=== PATIENT | male | born 1940 | race Caucasian/White ===

== ENCOUNTER 2019-02-06 21:31 | Inpatient (IN) | payer OTHER ==
[~2019-02-06] VITALS: Ht 162.6 cm; Wt 63.5 kg
[2019-02-06 21:43] VITALS: BP_SYST 150
--- NOTE | 2019-02-06 21:48 | NUR ---
Patient triaged and placed in waiting room. VSS and patient appears in no acute distress at this time. Accompanied by SELF, awaiting available bed, and MD notified of need for MSE.
[2019-02-06 22:11] LABS: BASOPHILS # (AUTO) 0.1 K/uL (0.0-0.2); BASOPHILS % (AUTO) 0.9 % (0.0-2.0); EOSINOPHILS # (AUTO) 0.2 K/uL (0.0-0.4); EOSINOPHILS % (AUTO) 2.8 % (0.0-4.0); HEMATOCRIT 44.8 % (36-54); LYMPHOCYTES # (AUTO) 2.5 K/uL (1.0-5.5); LYMPHOCYTES % (AUTO) 35.9 % (20.5-51.5); MEAN CORPUSCULAR HEMOGLOBIN 34 pg (27-31); MEAN CORPUSCULAR HGB CONC 33 % (32-36); MEAN CORPUSCULAR VOLUME 101 fL (79.0-98.0); MONOCYTES # (AUTO) 0.9 K/uL (0.0-1.0); MONOCYTES % (AUTO) 12.5 % (1.7-9.3); NEUTROPHILS # (AUTO) 3.3 K/uL (1.8-7.7); NEUTROPHILS % (AUTO) 47.9 % (40.0-70.0); PLATELET COUNT (AUTO) 224 K/uL (130-430); RED BLOOD CELL COUNT(AUTO) 4.42 MIL/uL (4.2-6.2); RED CELL DISTRIBUTION WIDTH 14.8 % (9.0-15.0); WHITE BLOOD COUNT (AUTO) 6.9 K/uL (4.8-10.8)
[2019-02-06 22:17] LABS: ANION GAP 10 (5-15); CALCIUM 9.5 mg/dL (8.4-11.0); CHLORIDE 107 mmol/L (98-107); CREATININE 0.84 mg/dL (0.55-1.30); GLUCOSE 114 mg/dL (70-99); POTASSIUM 3.6 mmol/L (3.5-5.1); SODIUM SERUM 142 mmol/L (136-145); UREA NITROGEN, BLOOD 23 mg/dL (8-21)
[2019-02-06 22:23] LABS: ALANINE AMINOTRANSFERASE 38 U/L (12-78); ALBUMIN 3.4 g/dL (3.4-4.8); ASPARTATE AMINOTRANSFERASE 24 U/L (10-37)
--- NOTE | 2019-02-06 22:55 | NUR ---
Patient to ER bed 7 to gown for evaluation. Side rails up. Report given to Antony MCDONALD.
--- NOTE | 2019-02-06 23:00 | NUR ---
Pt C/O rectal bleeding since this morning. Pt states he has hx of hemorrhoids and scrubbed his anus vigorously this morning prior to the start of his symptoms. Pt denies any pain, N/V/D, or any other symptoms at this time, will continue to monitor.
--- NOTE | 2019-02-06 23:30 | NUR ---
Rectal exam performed by Dr. Loza with Antony MCDONALD at bedside during procedure. Patient tolerated well.
--- NOTE | 2019-02-07 00:32 | NUR ---
Patient transported to radiology via wheelchair, accompanied by rad staff.
--- NOTE | 2019-02-07 00:47 | NUR ---
Pt returned in stable condition
--- NOTE | 2019-02-07 00:52 | NUR ---
Medication reconciliation completed with information provided by patient.
--- NOTE | 2019-02-07 01:09 | NUR ---
# 18 gauge angiocath placed to LT Forearm. Use of asceptic technique. Opsite placed over site. Blood return noted. Blood for lab drawn from site. Flushed with 10 cc of normal saline. No evidence of infiltration noted. Patient tolerated well.
[2019-02-07 01:26] LABS: HEMATOCRIT 42.3 % (36-54); HEMOGLOBIN 14.2 g/dL (14.0-18.0)
--- NOTE | 2019-02-07 02:00 | NUR ---
Pt is aware of potential admission. Will continue to monitor for any change of condition
--- NOTE | 2019-02-07 03:05 | NUR ---
Patient will be admitted to care of Dr. Willingham. Admitted to med surg unit. Will be held in the ED until bed becomes available. Belongings list completed. Summary report printed. Report will be given at bedside.
[2019-02-07] MEDS: D5/0.45 NS 1,000 ML IV SCH ×2 (04:15→14:52)
--- NOTE | 2019-02-07 04:15 | NUR ---
Pt is sleeping in bed, no acute distress noted at this time
--- NOTE | 2019-02-07 05:26 | NUR ---
Pt is resting in bed, no acute distress noted at this time.
--- NOTE | 2019-02-07 05:55 | NUR ---
Pt able to ambulate to the restroom with steady gait. No reports of lethargy, dizziness or any other symptoms besides rectal bleeding. Will continue to monitor.
--- NOTE | 2019-02-07 06:56 | NUR ---
Pt is resting in bed, no acute distress noted at this time. Will continue to monitor.
--- NOTE | 2019-02-07 07:14 | NUR ---
Report given to Admit Nurse prior to change of shift.
--- NOTE | 2019-02-07 07:15 | NUR ---
Report given to Anahi MCDONALD for continuation of care.
--- NOTE | 2019-02-07 07:18 | NUR ---
Patient awake and alert, sitting up in gurney with at bedside.
--- NOTE | 2019-02-07 07:33 | NUR ---
Patient will be admitted to care of Dr. Willingham. Admitted to Med Surg unit. Will go to room 130A. Belongings list completed. Summary report printed. Report will be given at bedside.
[2019-02-07] MEDS ORDERED: MORPHINE 4 MG/ML INJ. SYRINGE IVP PRN (07:45)
[2019-02-07] MEDS ORDERED: ONDANSETRON HCL 4 MG/2 ML VIAL IVP PRN (07:45)
[2019-02-07] MEDS ORDERED: LORazepam 2 MG/ML VIAL IVP PRN (07:45)
[2019-02-07] MEDS ORDERED: MORPHINE 2 MG/ML INJ. SYRINGE IVP PRN (07:45)
--- NOTE | 2019-02-07 07:45 | NUR ---
ADMISSION NOTE Received patient from ER via [place], Patient admitted with diagnosis of RECTAL BLEED. Patient oriented to hospital routine, call light, toileting and safety-patient verbalized understanding.
[2019-02-07 07:58] VITALS: BP_SYST 153
--- NOTE | 2019-02-07 08:00 | NUR ---
INITIAL ASSESSMENT: PATIENT CAME FROM ER WITH A DIAGNOSIS OF RECTAL BLEED VIA GURNEY IN ROOM 130-A. REPORT GIVEN BY DANA.SEEN PATIENT IN BED. NO ACUTE DISTRESS. BED LOCKED AT LOWEST POSITION.CALL LIGHT WITH IN REACH. INITIAL ASSESSMENT RENDERED. NO PROBLEM.
--- NOTE | 2019-02-07 08:08 | NUR ---
GI ROUNDS: PATIENT SEEN BY DR LARIOS WITH ORDERS SECURE CONSENT FOR COLONOSCOPY,BOWEL PREP THIS EVENING ORDERED.
--- NOTE | 2019-02-07 11:30 | NUR ---
RN ROUNDS: PATIENT STARTED HAVING CLEAR LIQUID DIET,NO RED. WELL TOLERATED.
--- NOTE | 2019-02-07 13:00 | NUR ---
RN ROUNDS: RESTING. NO PROBLEM.
[2019-02-07 13:08] VITALS: BP_SYST 137
--- NOTE | 2019-02-07 15:15 | NUR ---
RN ROUNDS: NO DISTRESS. CONTINUE TO MONITOR.
[2019-02-07] MEDS ORDERED: BISACODYL 5 MG TABLET.DR (DULCOLAX) PO ONE (17:00)
--- NOTE | 2019-02-07 17:00 | NUR ---
DULCOLAX TABLET: DUE PO DULCOLAX GIVEN FOR BOWEL PREPARATION. NO PROBLEM.
[2019-02-07 17:06] VITALS: BP_SYST 148
[2019-02-07] MEDS ORDERED: GOLYTELY / COLYTE SOLUTION 4 LITERS PO ONE (18:00)
--- NOTE | 2019-02-07 18:00 | NUR ---
NIKKI: INSTRUCTIONS GIVEN TO PATIENT TO FINISHED IT WITH IN 3 HOURS ORDERED. NOTHING BY MOUTH AFTER 12 MIDNIGHT INSTRUCTED.
--- NOTE | 2019-02-07 18:45 | NUR ---
CLOSING NOTES: GOLYTELY ON GOING AND PATIENT TAKING IT WELL. CALL LIGHT WITH REACH. BED LOCKED AT LOWEST POSITION. NO DISTRESS.
[2019-02-07 20:10] VITALS: BP_SYST 135
--- NOTE | 2019-02-07 20:25 | NUR ---
PATIENT AWAKE ALERT AMBULATES HAILY NPO @ MIDNIGHT FOR COLONOSCOPY PATIENT ALERT ALSO AWARE .
--- NOTE | 2019-02-07 20:26 | NUR ---
GOLYTELY PO CONTINUED BRP STOOL SEMI CLEAR CONTINUE TO MONITOR .
[2019-02-07 23:48] VITALS: BP_SYST 129
[2019-02-08 00:37] VITALS: BP_SYST 119
--- NOTE | 2019-02-08 02:20 | NUR ---
GOLYTELY PO COMPLETED PATIENT TOLERATE STOOL STILL SEMI CLEAR CONTINUE TO MONITOR .
--- NOTE | 2019-02-08 02:21 | NUR ---
PATIENT NPO ALERT & AWARE FFOR AM PROCEDURE .
--- NOTE | 2019-02-08 02:42 | NUR ---
OUT OF BED TO REST ROOM STOOL IS CLEAR THIS HOUR AMBULATES WITH STEADY GAIT , TOLERATE .
--- NOTE | 2019-02-08 04:49 | NUR ---
GOLYTELY 4000 ML PO COMPLETED CLEAR STOOL NOTED , PATIENT REMAINS NPO FOR AM PROCEDURE .
--- NOTE | 2019-02-08 04:51 | NUR ---
CUSTOMER CONTACT SPECIALIST IS MADE AWARE OF GI REQUEST FOR SERVICE FOR 0700 / .
[2019-02-08] MEDS: D5/0.45 NS 1,000 ML IV SCH ×3 (05:51→19:15)
[2019-02-08 05:53] LABS: INR 1.1 (0.80-1.20); PROTHROMBIN TIME 10.8 SECS (9.5-12.5)
[2019-02-08 05:57] LABS: BASOPHILS # (AUTO) 0.1 K/uL (0.0-0.2); BASOPHILS % (AUTO) 0.9 % (0.0-2.0); EOSINOPHILS # (AUTO) 0.1 K/uL (0.0-0.4); EOSINOPHILS % (AUTO) 1.9 % (0.0-4.0); HEMATOCRIT 38.7 % (36-54); LYMPHOCYTES # (AUTO) 1.7 K/uL (1.0-5.5); LYMPHOCYTES % (AUTO) 26.1 % (20.5-51.5); MEAN CORPUSCULAR HEMOGLOBIN 34 pg (27-31); MEAN CORPUSCULAR HGB CONC 34 % (32-36); MEAN CORPUSCULAR VOLUME 101 fL (79.0-98.0); MONOCYTES # (AUTO) 0.7 K/uL (0.0-1.0); MONOCYTES % (AUTO) 10.1 % (1.7-9.3); PLATELET COUNT (AUTO) 212 K/uL (130-430); RED BLOOD CELL COUNT(AUTO) 3.82 MIL/uL (4.2-6.2); RED CELL DISTRIBUTION WIDTH 14.2 % (9.0-15.0); WHITE BLOOD COUNT (AUTO) 6.6 K/uL (4.8-10.8)
[2019-02-08 06:06] LABS: ALANINE AMINOTRANSFERASE 41 U/L (12-78); ALBUMIN 2.7 g/dL (3.4-4.8); ANION GAP 9 (5-15); ASPARTATE AMINOTRANSFERASE 25 U/L (10-37); CALCIUM 8.2 mg/dL (8.4-11.0); CHLORIDE 108 mmol/L (98-107); GLUCOSE 117 mg/dL (70-99); POTASSIUM 3.5 mmol/L (3.5-5.1); SODIUM SERUM 143 mmol/L (136-145); TOTAL BILIRUBIN 0.7 mg/dL (0.0-1.0); UREA NITROGEN, BLOOD 9 mg/dL (8-21)
[2019-02-08] MEDS: MIDAZOLAM HCL 5 MG/5 ML VIAL ONE ×3 (07:14→07:55)
[2019-02-08] MEDS ORDERED: SIMETHICONE 40 MG/0.6 ML ML ONE (07:14)
[2019-02-08] MEDS ORDERED: MIDAZOLAM HCL 5 MG/5 ML VIAL ONE (07:34)
[2019-02-08 07:47] VITALS: BP_SYST 155
[2019-02-08] MEDS: fentaNYL CITRATE/PF 100 MCG/2 ML AMP ONE ×3 (07:52→08:58)
--- NOTE | 2019-02-08 08:45 | NUR ---
Note Pt was off the floor at 0745am to GI Lab for colonoscopy via wheelchair. Pt back to room at 0845. Pt stable. No SOB/resp distress or abdominal pain/discomfort noted at this time. IV in left forearm intact and patent at this time. Pt ambulates to restroom with steady gait independently. Call light within reach. Addendum: 02/08/19 at 1232 by Darcy Nieves RN GI RN stated - result of colonoscopy was severe diverticulosis and multiple ascending polyps (14).
--- NOTE | 2019-02-08 10:25 | NUR ---
Note Pt was instructed he is now on a Full liquid diet for lunch. Pt requested and received jello,chocolate pudding and apple juice at this time. No needs noted at this time. Call light within reach.
[2019-02-08 12:31] VITALS: BP_SYST 142
--- NOTE | 2019-02-08 15:25 | NUR ---
Note Pt resting in bed. Denies any needs at this time. Pt ambulates in room and to restroom independently with steady gait. Pt denies any rectal bleeding all shift when using restroom. Call light within reach.
[2019-02-08 16:33] VITALS: BP_SYST 139
--- NOTE | 2019-02-08 18:30 | NUR ---
NOTE PT SITTING ON SIDE OF BED AND EATING HIS FULL LIQUIDS DINNER. PT TOLERATED FULL LIQUIDS LUNCH AND DINNER. NO NEEDS NOTED AT THIS TIME. PT WAS CHECKED ON Q1' AND PRN ALL SHIFT FOR NEEDS AND CARE. PT'S AT BEDSIDE FOR 4-5 HOURS. PT DENIES ANY NEEDS AT THIS TIME. IV IN LEFT FOREARM INTACT AND PATENT AT THIS TIME. PT MAINTAINED WITH SAFETY PRECAUTIONS ALL SHIFT. PT REQUESTED TO BE SALINE LOCKED HE IS EATING AND DRINKING WELL SINCE RETURNING FROM COLONOSCOPY. CALL LIGHT WITHIN REACH.
--- NOTE | 2019-02-08 19:15 | NUR ---
Opening notes Received report. Patient sitting up in bed. No signs of distress noted. Breathing even and unlabored. IV patent and intact. No needs at this time. call light with the patient. Safety precautions in place.
[2019-02-08 20:00] VITALS: BP_SYST 132
--- NOTE | 2019-02-08 22:00 | NUR ---
Resting Patient resting in bed, talking on phone. No signs of distress noted. Breathing even and unlabored. No needs. Call light with the patient. Safety precautions in place.
--- NOTE | 2019-02-09 | NUR ---
Sleeping No signs of distress noted. Breathing even and unlabored. Call light with the patient. Safety precautions in place.
[2019-02-09 02:00] VITALS: BP_SYST 110
--- NOTE | 2019-02-09 02:11 | NUR ---
Sleeping No signs of distress noted. Breathing is even and unlabored. call light with the patient. Safety precautions in place.
--- NOTE | 2019-02-09 04:00 | NUR ---
Sleeping No signs of distress noted. Breathing even and unlabored. No needs at this time. Call light with the patient. Safety precautions in place.
[2019-02-09] MEDS: D5/0.45 NS 1,000 ML IV SCH (05:01)
--- NOTE | 2019-02-09 06:44 | NUR ---
Closing notes Patient awake, doing hygiene care. No signs of distress noted. Breathing even and unlabored. IV patent and intact. All needs met throughout the shift. Call light with the patient. safety precautions in place. will endorse care to day shift RN.
--- NOTE | 2019-02-09 07:24 | NUR ---
Opening Note received bedside SBAR report from maintenance supervisor 2nd shift RN, patient resting in bed, no acute distress noted, patient denies any pain, educated patient on use of call light and asked to call for assistance, patient verbalized understanding, call light in reach, educated patient on use of bed alarm for patient safety, patient refusing bed alarm, bed in low and locked position.
[2019-02-09 08:00] VITALS: BP_SYST 145
--- NOTE | 2019-02-09 08:59 | NUR ---
Bowel Movement patient ambulated to bathroom, BM x1, patient flushed stool before sericulturist, patient reports that there was no blood visible, patient resting in bed.
--- NOTE | 2019-02-09 10:38 | NUR ---
RN Rounds patient resting in bed, no acute distress noted, patient denies any pain, patients family at bedside.
--- NOTE | 2019-02-09 12:09 | NUR ---
RN Rounds patient sitting up in bed eating lunch, tolerating well, patient denies any nausea, patients family at bedside.
[2019-02-09 12:44] VITALS: BP_SYST 109
[2019-02-09 13:49] VITALS: BP_SYST 130
--- NOTE | 2019-02-09 14:09 | NUR ---
Spoke with Physician spoke with Dr. Felipe, per Dr. Felipe he will be in today to see patient and determine if patient is cleared for discharge, Dr. Willingham made aware, informed patient, patient verbalized understanding.
--- NOTE | 2019-02-09 15:05 | NUR ---
Physician Rounds Dr. Felipe at bedside examining patient, Dr. Felipe informed patient to have follow up colonoscopy in 3-6 months, patient verbalized understanding, per Dr. Felipe patient is cleared for discharge home.
--- NOTE | 2019-02-09 15:19 | NUR ---
Discharge provided patient with discharge packet and instructions, patient verbalized understanding, diet instructions for diverticulosis provided to patient by RD, IV catheter removed, catheter intact, no bleeding, steady gait noted, no acute distress noted, hospital ID band removed, all belongings sent with patient, patient accompanied by friend Dolores for discharge home, patient taken to parking lot via wheelchair.
== END 2019-02-09 15:20 | disposition home or self-care (01) | DRG 379 ==
LOC: SED 21:31 → SMU 02-07 03:04
PROVIDERS: ADMIT Preventive Medicine Preventive Medicine/Occupational Environmental Medicine; ATTEND Preventive Medicine Preventive Medicine/Occupational Environmental Medicine
PROC: 0DBK8ZZ Excision of Ascending Colon, Via Natural or Artificial Opening Endoscopic (ICD-10-PCS; principal; 2019-02-08 08:00)
DX: K57.31 Diverticulosis of large intestine without perforation or abscess with bleeding (principal); K64.9 Unspecified hemorrhoids; R73.9 Hyperglycemia, unspecified; D12.2 Benign neoplasm of ascending colon; K63.5 Polyp of colon
CPT/HCPCS: 36415; 45380; 80053; 82272; 85018-TC; 85025; 85610-TC; 88305; 99285; J2250; J3010; J7030

== ENCOUNTER 2019-10-18 17:42 | Emergency (ER) | payer OTHER ==
[~2019-10-18] VITALS: Ht 162.6 cm; Wt 61.2 kg
[2019-10-18 17:52] VITALS: BP_SYST 144
[2019-10-18] MEDS ORDERED: LIDOCAINE/EPI 2% 1:100000 20 ML VIAL INJ ONE (18:00)
[2019-10-18] MEDS ORDERED: BACITRACIN 1 GM OINT TP ONE (18:45)
[2019-10-18 18:58] VITALS: BP_SYST 144
[2019-10-18] MEDS ORDERED: cloNIDine HCL 0.1 MG TABLET PO ONE (19:15)
== END 2019-10-18 18:58 | disposition home or self-care (01) ==
LOC: SED 17:42
DX: S01.01XA Laceration without foreign body of scalp, initial encounter (principal); S01.112A Laceration without foreign body of left eyelid and periocular area, initial encounter; W10.9XXA Fall (on) (from) unspecified stairs and steps, initial encounter; Y93.89 Activity, other specified; Y92.89 Other specified places as the place of occurrence of the external cause; Y99.8 Other external cause status
CPT/HCPCS: 70450-TC; 70486-TC; 99285

== ENCOUNTER 2019-10-20 17:46 | Emergency (ER) | payer OTHER ==
[~2019-10-20] VITALS: Ht 162.6 cm; Wt 61.2 kg
[2019-10-20 17:46] VITALS: BP_SYST 150
[2019-10-20 18:37] VITALS: BP_SYST 142
== END 2019-10-20 18:37 | disposition home or self-care (01) ==
LOC: SED 17:46
DX: S01.81XD Laceration without foreign body of other part of head, subsequent encounter (principal); K64.9 Unspecified hemorrhoids; X58.XXXD Exposure to other specified factors, subsequent encounter
CPT/HCPCS: 99281

== ENCOUNTER 2019-10-27 11:36 | Emergency (ER) | payer OTHER ==
[~2019-10-27] VITALS: Ht 162.6 cm; Wt 61.2 kg
[2019-10-27 11:36] VITALS: BP_SYST 156
--- NOTE | 2019-10-27 11:36 | NUR ---
BROUGHT BACK TO BED #7 AND TRIAGED.REPORT GIVEN TO LAURA.
--- NOTE | 2019-10-27 11:45 | NUR ---
PATIENT PRESENTED TO ER C/O RE-CHECK. PATIENT A&OX4, AMBULATORY TO ER, AFEBRILE, DENIES PAIN, DENIES N/V/D. PATIENT STATES HE WAS SEEN HERE [facility] ER W/LACERATION, NIYA TO TOP OF HEAD, SUTURES TO LEFT EYEBROW; RECHECK FOR F/U.
--- NOTE | 2019-10-27 11:54 | NUR ---
DR URIOSTEGUI AT BEDSIDE FOR EVALUATION
--- NOTE | 2019-10-27 12:30 | NUR ---
Patient given written and verbal discharge instructions and verbalizes understanding. ER MD discussed with patient the results and treatment provided. Patient in stable condition. ID arm band removed. Rx of NONE given. Patient educated on pain management and to follow up with PMD. Pain Scale . Opportunity for questions provided and answered. Medication side effect fact sheet provided.
[2019-10-27 12:53] VITALS: BP_SYST 138
== END 2019-10-27 12:53 | disposition home or self-care (01) ==
LOC: SED 11:36
DX: Z48.02 Encounter for removal of sutures (principal); Z87.19 Personal history of other diseases of the digestive system
CPT/HCPCS: 99281

== ENCOUNTER 2020-01-10 09:28 | Emergency (ER) | payer OTHER ==
[~2020-01-10] VITALS: Ht 162.6 cm; Wt 61.2 kg
[2020-01-10 09:37] VITALS: BP_SYST 147
--- NOTE | 2020-01-10 09:43 | NUR ---
Patient triaged and placed in waiting room. VSS and patient appears in no acute distress at this time. Awaiting available bed, and MD notified of need for MSE.
--- NOTE | 2020-01-10 09:44 | NUR ---
Patient came from home for evaluation of puncture wound to bottom of left foot. Patient reports stepping on a nail last night. No wound noted on bottom of foot. Patient denies any other issues at this time.
--- NOTE | 2020-01-10 09:44 | NUR ---
Patient to [facility] for evaluation. Side rails up.
--- NOTE | 2020-01-10 09:45 | NUR ---
AVRIL Blank at bedside examining patient.
[2020-01-10] MEDS ORDERED: DIPH-TET-PERTUS Vaccine 0.5 ML VIAL (ADACEL) I.M. ONE (10:00)
[2020-01-10 10:06] VITALS: BP_SYST 147
--- NOTE | 2020-01-10 10:06 | NUR ---
Patient given written and verbal discharge instructions and verbalizes understanding. ER MD discussed with patient the results and treatment provided. Patient in stable condition. ID arm band removed. Patient educated on pain management and to follow up with PMD. Pain Scale 0/10. Opportunity for questions provided and answered. Medication side effect fact sheet provided.
== END 2020-01-10 10:06 | disposition home or self-care (01) ==
LOC: SED 09:28
DX: S91.332A Puncture wound without foreign body, left foot, initial encounter (principal); W45.0XXA Nail entering through skin, initial encounter; Y93.89 Activity, other specified; Y92.89 Other specified places as the place of occurrence of the external cause; Y99.8 Other external cause status
CPT/HCPCS: 90715; 99283

== ENCOUNTER 2021-01-21 07:26 | Emergency (ER) | payer OTHER ==
[~2021-01-21] VITALS: Ht 160 cm; Wt 59.0 kg
--- NOTE | 2021-01-21 07:30 | NUR ---
Patient to ER bed 6 to gown for evaluation. Side rails up. Report given to TAMARA Lewis.
[2021-01-21 07:36] VITALS: BP_SYST 141
--- NOTE | 2021-01-21 07:47 | NUR ---
Pt. came in with c/o difficulty hearing d/t wax build up in ears, ussually hears well only out of right ear and today that has become difficult, has been using earwax removal drops at home to both ears and has worsened.
--- NOTE | 2021-01-21 07:50 | NUR ---
ER at bedside examining patient.
[2021-01-21 09:20] VITALS: BP_SYST 141
--- NOTE | 2021-01-21 09:20 | NUR ---
Patient given written and verbal discharge instructions and verbalizes understanding. ER MD discussed with patient the results and treatment provided. Patient in stable condition. ID arm band removed. No prescriptions given. Patient educated on pain management and to follow up with PMD. Pain Scale 0. Opportunity for questions provided and answered. Medication side effect fact sheet provided.
== END 2021-01-21 09:20 | disposition home or self-care (01) ==
LOC: SED 07:26
DX: H61.23 Impacted cerumen, bilateral (principal)
CPT/HCPCS: 99282